=== PATIENT | male | born 1990 | race Caucasian/White ===

== ENCOUNTER 2017-03-20 22:46 | Emergency (ER) | payer BC, SELFPAY ==
[~2017-03-20] VITALS: Ht 193 cm; Wt 117.9 kg
[2017-03-20 22:48] VITALS: BP 151/89
[2017-03-21 04:01] LABS: ANION GAP 8 MEQ/L (8-16); BLOOD UREA NITROGEN 6 MG/DL (7-18); CALCIUM LEVEL 8.5 MG/DL (8.5-10.1); CARBON DIOXIDE LEVEL 28 MEQ/L (21-32); CHLORIDE LEVEL 103 MEQ/L (98-107); CREATININE FOR GFR 1.05 MG/DL (0.70-1.30); GLOMERULAR FILTRATION RATE > 60.0 (>60); GLUCOSE, FASTING 121 MG/DL (70-105); POTASSIUM SERUM 3.5 MEQ/L (3.5-5.1); SODIUM LEVEL 139 MEQ/L (136-145)
== END 2017-03-21 04:50 | disposition left against medical advice (07) ==
LOC: M ED 03-21 00:09
DX: J31.2 Chronic pharyngitis (principal); F17.200 Nicotine dependence, unspecified, uncomplicated; Z88.0 Allergy status to penicillin; Z53.21 Procedure and treatment not carried out due to patient leaving prior to being seen by health care provider

== ENCOUNTER 2017-07-25 20:27 | Emergency (ER) | payer BC ==
[~2017-07-25] VITALS: Ht 190.5 cm; Wt 113.6 kg
--- NOTE | 2017-07-25 22:20 | REPUSA ---
Clinical history: Pain. Findings: Real-time ultrasound imaging of the testicles and scrotum was performed. The right testicle measures 4.3 x 2.7 x 3.1 cm. The left testicle measures 4.4 x 2.2 x 3.0 cm. The testicles demonstrat e innumerable echogenic shadowing foci consistent with microlithiasis. This is not considered clinica lly significant. The palpable abnormality in the base of the right penis does not demonstrate any rebekah ss abnormality on ultrasound imaging. Normal color Doppler flow and arterial waveforms are seen bilat erally within the testicles. No fluid collections are seen. Impression: Unremarkable ultrasound examination of the testicles, other than benign bilateral microli thiasis. The palpable lesion at the base of the penis does not demonstrate any focal sonographic abno rmality.
[2017-07-25] MEDS ORDERED: IBUP-1022 PO (23:10)
[2017-07-25 23:17] VITALS: BP 142/88
== END 2017-07-25 23:27 | disposition home or self-care (01) ==
LOC: M ED 20:27
DX: N50.89 Other specified disorders of the male genital organs (principal); N50.811 Right testicular pain; F17.200 Nicotine dependence, unspecified, uncomplicated; Z88.0 Allergy status to penicillin; Z88.8 Allergy status to other drugs, medicaments and biological substances

== ENCOUNTER → 2019-03-29 | Outpatient (REF) | payer OTHER ==
[~2019-03-29] MED LIST: IBUP-1022 PO
== END ==
LOC: M SFHCLERA 17:00
PROVIDERS: ATTEND Nurse Practitioner Family
DX: J02.9 Acute pharyngitis, unspecified (principal)

== ENCOUNTER → 2019-11-19 | Outpatient (CLI) | payer OTHER ==
--- NOTE | 2019-11-19 14:30 | REP ---
Right ankle series: Four views. History: Right ankle pain. Remote prior history of fracture. No comparison imaging. Findings: There is a 1 cm accessory ossicle adjacent to the fibular tip. Ankle mortise is intact. No acute fractures seen. On lateral radiograph there is mild tibiotalar spurring. Bones, joints and soft tissues are otherwise unremarkable. Impression: Mild ankle joint spurring. Accessory ossicle adjacent to the fibular tip. No acute bony abnormality. Electronically Signed by Khai Jeff MD 11/19/2019 02:21 P
== END ==
LOC: M LRY 13:56
PROVIDERS: ATTEND Nurse Practitioner Family
DX: S99.911A Unspecified injury of right ankle, initial encounter (principal); X58.XXXA Exposure to other specified factors, initial encounter; Y92.89 Other specified places as the place of occurrence of the external cause

== ENCOUNTER 2020-02-10 11:03 | Emergency (ER) | payer OTHER ==
[~2020-02-10] VITALS: Ht 193 cm; Wt 124.0 kg
[2020-02-10 11:06] VITALS: BP 167/86
[2020-02-10] MEDS ORDERED: FLUORESCEIN OPHTH 1 MG STRIP OD ONE (11:15)
[2020-02-10] MEDS ORDERED: TETRACAINE 0.5% OPHTH SOLN 4ML OD ONE (11:15)
[2020-02-10] MEDS ORDERED: ERYT1OIN26 OP (11:41)
[2020-02-10] MEDS ORDERED: ERYTHROMYCIN OPHTH OINT OD ONE (11:45)
== END 2020-02-10 11:50 | disposition home or self-care (01) ==
LOC: M ED 11:03
DX: S05.01XA Injury of conjunctiva and corneal abrasion without foreign body, right eye, initial encounter (principal); W22.8XXA Striking against or struck by other objects, initial encounter; Y92.9 Unspecified place or not applicable; F17.210 Nicotine dependence, cigarettes, uncomplicated; Z88.0 Allergy status to penicillin; Z88.8 Allergy status to other drugs, medicaments and biological substances

== ENCOUNTER → 2020-10-16 | Outpatient (CLI) | payer SELFPAY ==
[~2020-10-16] MED LIST changes: +ERYT5OIN25 OP
== END ==
LOC: M LABSMTC 12:03
PROVIDERS: ATTEND Pediatrics
DX: Z20.828 Contact with and (suspected) exposure to other viral communicable diseases (principal)

== ENCOUNTER → 2020-11-09 | Outpatient (CLI) | payer OTHER | LOC: M LABSMTC 10:31 | PROVIDERS: ATTEND Anesthesiology | DX: Z01.812 Encounter for preprocedural laboratory examination (principal); Z20.822 Contact with and (suspected) exposure to COVID-19 ==

== ENCOUNTER 2020-11-14 09:26 | Day surgery (SDC) | payer OTHER ==
[~2020-11-14] VITALS: Ht 190.5 cm; Wt 132.4 kg
[~2020-11-14 09:26] MED LIST changes: +LIDOCAINE 2% 100MG/5ML SDV (FOR ANES.) As Ordered ONE; +NS 1,000 ML IV ONE; +propofoL 200 MG/20 ML VIAL As Ordered ONE
--- OUTSIDE RECORDS SUMMARY | 2020-11-14 09:33 | CCD | Continuity of Care Document ---
Author Author Sharan HUTSON [facility] Organization Unknown Address [address], [address] [place] [address] Phone [phone] Care Team Providers Care Ginseng Farmer Name Role Phone Jonatan Garcia M.D. [facility] [phone] Problems Description No Information Available Social History Type Date Description Comments Sex Unknown ETOH Use Denies alcohol use Tobacco Use Start: Unknown Smokes 1 Pack A Day X10 YRS Recreational Drug Use Denies Drug Use Allergies, Adverse Reactions, Alerts Active Allergies Reaction Severity Comments Date Penicillins RASH 05/30/2012 Ceftin RASH 05/30/2012 Medications Description No Active Medications Immunizations Description No Information Available Vital Signs Date Vital Result Comment 10/14/2020 12:58pm BP Systolic 150 mmHg BP Diastolic 80 mmHg Height 74 inches 6'2" Weight 295.00 lb BMI (Body Mass Index) 37.9 kg/m2 [place] Body Weight 190 lb Weight 133.812 kg BSA (Body Surface Area) 2.56 m2 05/30/2012 9:41am BP Systolic 135 mmHg BP Diastolic 75 mmHg Height 75 inches 6'3" Weight 280.00 lb BMI (Body Mass Index) 35.0 kg/m2 [place] Body Weight 196 lb Weight 127.008 kg Results Description No Information Available Procedures Description No Information Available Medical Devices Description No Information Available Encounters Description No Information Available Assessments Description No Information Available Plan of Treatment No Information Available Functional Status Description No Information Available Mental Status Description No Information Available Referrals Description No Information Available
--- OUTSIDE RECORDS SUMMARY | 2020-11-14 09:33 | CCD ---
Author Author [facility] Organization [facility] Address Unknown Phone Unavailable Care Team Providers Care Copy Reader Name Role Phone Jonatan Garcia Unavailable PROBLEMS No Information ALLERGIES Allergen (clinical drug ingredient) Drug/Non Drug Allergy do cumented on EMR Reaction Allergy Type Onset Date Status Ceftin rash Drug Allergy Active ENCOUNTERS from 1990 to 2020-10-16 Encounter Location Date Provider Diagnosis [facility] [address] [place] [address] Oct, Jonatan Garcia IMMUNIZATIONS No Information SOCIAL HISTORY Tobacco Use: Social History Observation Description Date Details (start date - stop date) Current Smoker Sex Assigned At : Social History Observation Description Sex Assigned At Unknown Tobacco Use: Question Answer Notes Are you a: current smoker How many cigarettes a day do you smoke? 6-10 REASON FOR REFERRAL No Information VITAL SIGNS No information MEDICATIONS No Information PROCEDURES No Information RESULTS No Results REASON FOR VISIT chest pain, shortness of breath MEDICAL (GENERAL) HISTORY Type Description Date Medical History vertigo Medical History Pleurisy Medical History Fx left elbow no surgery 2012 Surgical History tonsilectomy Goals Section No Information Health Concerns No Information MEDICAL EQUIPMENT No Information MENTAL STATUS No Information FUNCTIONAL STATUS No Information ASSESSMENTS No Information PLAN OF TREATMENT No Information Insurance Providers Payer Name Payer Address Payer Phone Insured Name Patient Relati onship to Insured Coverage Start Date Coverage End Date [facility] [address] [address] [facility] [id number] CRISTIN LOPEZ Lizzy self
--- OUTSIDE RECORDS SUMMARY | 2020-11-14 09:34 | CCD ---
Author Author [facility] Organization [facility] Address Unknown Phone Unavailable Care Team Providers Care Buzzsaw Operator Helper Name Role Phone Servando LOPEZ DPM Unavailable Unavailable Servando LOPEZ DPM Unavailable Unavailable Servando LOPEZ DPM Unavailable Unavailable Servando LOPEZ DPM Unavailable Unavailable Servando LOPEZ DPM Unavailable Unavailable Servando LOPEZ DPM Unavailable Unavailable Servando LOPEZ DPM Unavailable Unavailable Servando LOPEZ DPM Unavailable Unavailable Servando LOPEZ DPM Unavailable Unavailable Servando LOPEZ DPM Unavailable Unavailable Servando LOPEZ DPM Unavailable Unavailable Servando LOPEZ DPM Unavailable Unavailable Servando LOPEZ DPM Unavailable Unavailable Servando LOPEZ DPM Unavailable Unavailable MAJAK, R FERNANDO DPM Unavailable Unavailable MAJAK, R FERNANDO DPM Unavailable Unavailable MAJAK, R FERNANDO DPM Unavailable Unavailable MAJAK, R FERNANDO DPM Unavailable Unavailable MAJAK, R FERNANDO DPM Unavailable Unavailable MAJAK, R FERNANDO DPM Unavailable Unavailable MAJAK, R FERNANDO DPM Unavailable Unavailable MAJAK, R FERNANDO DPM Unavailable Unavailable MAJAK, R FERNANDO DPM Unavailable Unavailable MAJAK, R FERNANDO DPM Unavailable Unavailable MAJAK, R FERNANDO DPM Unavailable Unavailable MAJAK, R FERNANDO DPM Unavailable Unavailable MAJAK, R FERNANDO DPM Unavailable Unavailable MAJAK, R FERNANDO DPM Unavailable Unavailable MAJAK, R FERNANDO DPM Unavailable Unavailable MAJAK, R FERNANDO DPM Unavailable Unavailable CLAUDIA, VIVEK PA Unavailable Unavailable CLAUDIA, VIVEK PA Unavailable Unavailable CLAUDIA, VIVEK PA Unavailable Unavailable CLAUDIA, VIVEK PA Unavailable Unavailable CLAUDIA, VIVEK PA Unavailable Unavailable CLAUDIA, VIVEK PA Unavailable Unavailable CLAUDIA, VIVEK PA Unavailable Unavailable CLAUDIA, VIVEK PA Unavailable Unavailable CLAUDIA, VIVEK PA Unavailable Unavailable CLAUDIA, VIVEK PA Unavailable Unavailable CLAUDIA, VIVEK PA Unavailable Unavailable CLAUDIA, VIVEK PA Unavailable Unavailable CLAUDIA, VIVEK PA Unavailable Unavailable CLAUDIA, VIVEK PA Unavailable Unavailable CLAUDIA, VIVEK PA Unavailable Unavailable CLAUDIA, VIVEK PA Unavailable Unavailable CLAUDIA, VIVEK PA Unavailable Unavailable CLAUDIA, VIVEK PA Unavailable Unavailable CLAUDIA, VIVEK PA Unavailable Unavailable CLAUDIA, VIVEK PA Unavailable Unavailable CLAUDIA, VIVEK PA Unavailable Unavailable CLAUDIA, VIVEK PA Unavailable Unavailable CLAUDIA, VIVEK PA Unavailable Unavailable CLAUDIA, VIVEK PA Unavailable Unavailable CLAUDIA, VIVEK PA Unavailable Unavailable CLAUDIA, VIVEK PA Unavailable Unavailable CLAUDIA, VIVEK PA Unavailable Unavailable CLAUDIA, VIVEK PA Unavailable Unavailable CLAUDIA, VIVEK PA Unavailable Unavailable CLAUDIA, VIVEK PA Unavailable Unavailable CLAUDIA, VIVEK PA Unavailable Unavailable CLAUDIA, VIVEK PA Unavailable Unavailable CLAUDIA, VIVEK PA Unavailable Unavailable CLAUDIA, VIVEK PA Unavailable Unavailable CLAUDIA, VIVEK PA Unavailable Unavailable CLAUDIA, VIVEK PA Unavailable Unavailable CLAUDIA, VIVEK PA Unavailable Unavailable CLAUDIA, VIVEK PA Unavailable Unavailable LAUREN, A. SHAHBAZ DO Unavailable [phone] LAUREN, A. SHAHBAZ DO Unavailable [phone] LAUREN, A. SHAHBAZ DO Unavailable [phone] LAUREN, A. SHAHBAZ DO Unavailable [phone] LAUREN, A. SHAHBAZ DO Unavailable [phone] LAUREN, A. SHAHBAZ DO Unavailable [phone] LAUREN, A. SHAHBAZ DO Unavailable [phone] LAUREN, A. SHAHBAZ DO Unavailable [phone] LAUREN, A. SHAHBAZ DO Unavailable [phone] LAUREN, A. SHAHBAZ DO Unavailable [phone] LAUREN, A. SHAHBAZ DO Unavailable [phone] LAUREN, A. SHAHBAZ DO Unavailable [phone] LAUREN, A. SHAHBAZ DO Unavailable [phone] LAUREN, A. SHAHBAZ DO Unavailable [phone] LAUREN, A. SHAHBAZ DO Unavailable [phone] LAUREN, A. SHAHBAZ DO Unavailable [phone] LAUREN, A. SHAHBAZ DO Unavailable [phone] LAUREN, A. SHAHBAZ DO Unavailable [phone] LAUREN, A. SHAHBAZ DO Unavailable [phone] LAUREN, A. SHAHBAZ DO Unavailable [phone] LAUREN, A. SHAHBAZ DO Unavailable [phone] Re-disclosure Warning The records that you are about to access may contain information from federally-assisted alcohol or drug abuse programs. If such information is present, then the following federally mandated warning applies: This information has been disclosed to you from records protected by federal confidentiality rules (42 CFR part 2). The federal rules prohibit you from making any further disclosure of this information unless further disclosure is expressly permitted by the written consent of the person to whom it pertains or as otherwise permitted by 42 CFR part 2. A general authorization for the release of medical or other information is NOT sufficient for this purpose. The Federal rules restrict any use of the information to criminally investigate or prosecute any alcohol or drug abuse patient.The records that you are about to access may contain highly sensitive health information, the redisclosure of which is protected by Article 27-F of the [facility] Public Health law. If you continue you may have access to information: Regarding HIV / AIDS; Provided by facilities licensed or operated by the [facility] Office of Mental Health; or Provided by the [facility] Office for People With Developmental Disabilities. If such information is present, then the following [facility] mandated warning applies: This information has been disclosed to you from confidential records which are protected by state law. State law prohibits you from making any further disclosure of this information without the specific written consent of the person to whom it pertains, or as otherwise permitted by law. Any unauthorized further disclosure in violation of state law may result in a fine or halfway sentence or both. A general authorization for the release of medical or other information is NOT sufficient authorization for further disc losure. Allergies and Adverse Reactions Type Description Substance Reaction Status Data Source(s ) Drug allergy Ceftin Ceftin Active SHAYY (Chase Roberts MD [facility]) Drug allergy Penicillins Penicillins Active SHAYY ( Goldy Roberts MD [facility]) Drug allergy Ceftin Drug allergy rash Active eCW1 ([facility]) Encounters Encounter Providers Location Date Indications Data Source(s ) Unknown [address] [address] 10/14/2020 12:00:00 AM EST eCW1 ([facility]) Outpatient<td ID="encounterTypeDescripti onID0">NEW PATIENT</td><td>Shahbaz Ocampo DO</td><td>Goldy Duggan MD [facility]</td><td>07/19/2020</td><td>8:11AM</td><td>9:16AM</td><td><content ID="encounterDiagnosisID0-0">Vitreous Disorders Degeneration</content>, <content ID="encounterDiagnosisID0-1">Corneal Scar</content>, <content ID="encounterDiagnosisID0-2">Astigmatism - Irregular</content></td> Attender: SHAHBAZ Oneil MD [facility] 07/19/2020 08:11:00 AM EDT - 07/19/2020 09:16:00 AM EDT Astigmatism - IrregularCorneal ScarVitre ous Disorders Degeneration SHAYY (Goldy Roberts MD [facility]) Astigmatism - Irregular Corneal Scar Vitreous Disorders Degeneration Outpatient Attender: FERNANDO LOPEZ [facility] Office 05/02 08:15:00 AM EDT MEDENT ([facility] Outpatient Attender: FERNANDO LOPEZ [facility] Office 05/2020 08:30:00 AM EDT MEDENT ([facility] Outpatient 12/11/2019 02:19:00 PM EST [facility] [address] [address] 11/19/2019 12:00:00 AM EST eCW1 ([facility]) Outpatient Attender: VIVEK fine 11/13/2019 09:15:00 AM EST MEDENT ([facility]) Medications Medication Brand Name Start Date Product Form Dose Route Admi nistrative Instructions Pharmacy Instructions Status Indications Reaction Description Data Source(s) 17.5-3.13-1.6 gram 11/07/2020 12:00:00 AM EST recon soln 354 TAKE DIRECTED BY PHYSICIAN TAKE DIRECTED BY PHYSICIAN SOLD: 11/09/2020 [facility] 5 mg/gram (0.5 %) 02/10/2020 12:00:00 AM EDT ointment 3 APPLY 1 CENTIMETER RIBBON INTO THE LOWER CONJUNCTIVAL SAC OF THE AFFECTED EYE(S) FOUR TIMES A DAY APPLY 1 CENTIMETER RIBBON INTO THE LOWER CONJUNCTIVAL SAC OF THE AFFECTED EYE(S) FOUR TIMES A DAY SOLD: 02/10/2020 [facility] Oseltamivir 75 MG Oral Capsule Oseltamivir Phosphate 11/13/2019 12:00:00 AM EST ORAL active MEDENT ( [facility]) 75 mg 11/13/2019 12:00:00 AM EST capsule 10 TAKE ONE CAPSULE BY MOUTH TWICE A DAY FOR 5 DAYS TAKE ONE CAPSULE BY MOUTH TWICE A DAY FOR 5 DAYS SOLD: 11/13/2019 [facility] Insurance Providers Payer name Policy type / Coverage type Policy ID Covered constitution party ID Covered constitution party's relationship to be Policy Be Plan Information UMR [facility] [id number] SP [id number] SELF PAY ONLY [employer] [place] Other 0 Self 0 UMR [facility] [id number] SP [id number] UMR O [id number] S [id number] SELF PAY ONLY - SP1 [id number] SP [id number] [place] 302/307 [id number] MO2 [id number] [place] BCBS B [id number] C VYS [place] [place] 306/806 [id number] MO2 [id number] [place] PPO 302/307 [id number] MO2 [id number] SELF PAY ONLY [id number] SP [id number] [employer] [place] 306/806 [id number] MO2 [id number] [employer] BCBS P [id number] C VYS [id number] Problems, Conditions, and Diagnoses Code Display Name Description Problem Type Effective Dates Data Source(s) 379.21 Vitreous Disorders Degeneration Vitreous Disorders Deg eneration Problem 07/19/2020 12:00:00 AM EDT SHAYY (Goldy Roberts MD [facility]) 371.02 Corneal Scar Corneal Scar Problem 07/19/2020 12:00:00 A M EDT SHAYY (Goldy Roberts MD [facility]) 367.22 Astigmatism - Irregular Astigmatism - Irregular Proble m 07/19/2020 12:00:00 AM EDT SHAYY (Goldy Roberts MD [facility]) Corns and callosities Corns and callosities Problem 05/21/2020 12:00:00 AM EDT MEDENT ([facility] [id number] Hammer toe Hammer toe Problem 05/21/2020 12:00:00 AM ED T MEDENT ([facility] [id number] Osteochondropathy Osteochondropathy Problem 05/21/2020 12:00:00 AM EDT [facility] ([facility] Surgeries/Procedures Procedure Description Date Indications Data Source(s) Surgical / procedural history Tonsillec justo 2010, Placement of Amniotic Membrane without sutures 02/14/2020, 02/16/2020 and 02/19/2020 by [facility] Surgical / procedural history Tonsillectomy 2009, Placement of Amniotic Membrane without sutures 02/14/2020, 02/16/2020 and 02/19/2020 by [facility] 07/19/2020 12:00:00 AM EDT SHAYY (Goldy Roberts MD [facility]) Medical Eye Exam Medical Eye Exam 07/19/2020 12:00:00 AM EDT SHAYY (Goldy Roberts MD [facility]) Results ID Date Data Source [id number] 11/09/2020 10:30:00 AM EST [facility] Name Value Range Interpretation Code Description Data Zuleika rce(s) Supporting Document(s) SARS coronavirus 2 RNA Not Detected [facility] This lab was ordered by [facility] and reported by [facility]. ID Date Data Source [id number] 10/16/2020 12:00:00 AM EST [facility] Name Value Range Interpretation Code Description Data Zuleika rce(s) Supporting Document(s) SARS-CoV-2 (COVID-19) RNA [Presence] in Respiratory specimen by JT with probe detection [facility] This lab was ordered by [facility] and reported by [employer] ID Date Data Source [id number] 09/18/2020 12:00:00 AM EST [facility] Name Value Range Interpretation Code Description Data Zuleika rce(s) Supporting Document(s) SARS-CoV2 Rapid Antigen [facility] and reported by [facility]. Procedure Social History Code Duration Value Status Description Data Source(s ) Smoking 07/19/2020 09:20:46 AM EDT Smokes tobacco daily (findi ng) completed Smokes tobacco daily (finding) SHAYY (Goldy Roberts MD [facility]) Smoking 11/19/2019 12:00:00 AM EST Current Smoker completed Curre nt Smoker eCW1 ([facility]) Vital Signs ID Date Data Source UNK Name Value Range Interpretation Code Description Data Source(s) Body surface area Derived from formula 2.56 m2 2.56 m2 [facility] Body weight 133.812 kg 133.812 kg [facility] ([facility]) [place] body weight 190 [lb_av] 190 [lb_av] MEDEN T ([facility]) Body mass index (BMI) [Ratio] 37.9 kg/m2 37.9 k g/m2 MEDENT ([facility]) Body weight 295.00 [lb_av] 295.00 [lb_av] MEDEN T ([facility]) Body height 74 [in_i] 74 [in_i] [facility] ([facility]) 6'2" Diastolic blood pressure 80 mm[Hg] 80 mm[Hg] [facility] ([facility]) Systolic blood pressure 150 mm[Hg] 150 mm[Hg] [facility] Body mass index (BMI) [Ratio] 32.3 kg/m2 32.3 k g/m2 MEDENT ([facility] Heart rate 74 /min 74 /min [facility] ([facility] Diastolic blood pressure 90 mm[Hg] 90 mm[Hg] [facility] ([facility] Systolic blood pressure 128 mm[Hg] 128 mm[Hg] M EDENT ([facility] Body weight 265.00 [lb_av] 265.00 [lb_av] MEDEN T ([facility] Body height 76 [in_i] 76 [in_i] [facility] ([facility] 6'4" Diastolic blood pressure 80 mm[Hg] 80 mm[Hg] eCW1 ([facility]) Systolic blood pressure 136 mm[Hg] 136 mm[Hg] e CW1 ([facility]) Body temperature 98.4 [degF] 98.4 [degF] eCW1 ( [facility]) Respiratory rate 18 /min 18 /min eCW1 ([facility]) Heart rate 92 /min 92 /min eCW1 ([facility]) Body mass index (BMI) [Ratio] 36.07 kg/m2 36.07 kg/m2 eCW1 ([facility]) Body height [in_us] eCW1 ([facility]) Body weight Measured 281 [lb_av] 281 [lb_av] eC W1 ([facility]) Body mass index (BMI) [Ratio] 33.5 kg/m2 33.5 k g/m2 MEDENT ([facility], [facility]) Body height 76 [in_i] 76 [in_i] MEDENT ([facility], [facility]) 6'4" Body weight 275.00 [lb_av] 275.00 [lb_av] MEDEN T ([facility], [facility]) Body temperature 97.9 [degF] 97.9 [degF] MEDENT ([facility], [facility]) Oxygen saturation in Arterial blood by Pulse oximetry 98 % 98 % MEDENT ([facility], [facility]) Heart rate 70 /min 70 /min MEDENT ([facility], [facility]) Diastolic blood pressure 77 mm[Hg] 77 mm[Hg] MEDENT ([facility], [facility]) Systolic blood pressure 127 mm[Hg] 127 mm[Hg] M EDENT ([facility], [facility])
[2020-11-14] MEDS ORDERED: fentaNYL 100 MCG/2 ML INJECTION (J3010) As Ordered ONE (10:57)
--- NOTE | 2020-11-14 11:33 | ROOR ---
Patient Name: Sharan Streeter Procedure Date: 11/14/2020 10:48 AM Date of : 1990 Age: 30 Room: [facility] Gender: Male Note Status: Finalized Procedure: Upper GI endoscopy Indications: Epigastric abdominal pain, Heartburn Providers: Sukh Sotomayor MD Referring MD: Jonatan Garcia MD Requesting Provider: Medicines: Monitored Anesthesia Care Complications: No immediate complications. Procedure: Pre-Anesthesia Assessment: - Prior to the procedure, a History and Physical was performed, and patient medications and allergies were reviewed. The patient is competent. The risks and benefits of the procedure and the sedation options and risks were discussed with the patient. All questions were answered and informed consent was obtained. Patient identification and proposed procedure were verified by the physician, the nurse and the anesthesiologist in the procedure room. Mental Status Examination: alert and oriented. Airway Examination: normal oropharyngeal airway and neck mobility. Prophylactic Antibiotics: The patient does not require prophylactic antibiotics. Prior Anticoagulants: The patient has taken no previous anticoagulant or antiplatelet agents. ASA Grade Assessment: II - A patient with mild systemic disease. After reviewing the risks and benefits, the patient was deemed in satisfactory condition to undergo the procedure. The anesthesia plan was to use monitored anesthesia care (MAC). Immediately prior to administration of medications, the patient was re-assessed for adequacy to receive sedatives. The heart rate, respiratory rate, oxygen saturations, blood pressure, adequacy of pulmonary ventilation, and response to care were monitored throughout the procedure. The physical status of the patient was re-assessed after the procedure. The Endoscope was introduced through the mouth, and advanced to the second part of duodenum. The upper GI endoscopy was accomplished without difficulty. The patient tolerated the procedure well. Findings: The examined esophagus was normal. The Z-line was regular and was found 42 cm from the incisors. The entire examined stomach was normal. Biopsies were taken with a cold forceps for Helicobacter pylori testing. Estimated blood loss was minimal. The examined duodenum was normal. Impression: - Normal esophagus. - Z-line regular, 42 cm from the incisors. - Normal stomach. Biopsied. - Normal examined duodenum. Recommendation: - Discharge patient to home. - Resume previous diet. - Continue present medications. - Await pathology results. - Telephone endoscopist for pathology results in 1 week. Procedure Code(s): --- Professional --- 86537, Esophagogastroduodenoscopy, flexible, transoral; with biopsy, single or multiple Diagnosis Code(s): --- Professional --- R10.13, Epigastric pain R12, Heartburn CPT copyright 2019 [employer] [employer]. All rights reserved. The codes documented in this report are preliminary and upon inpatient coder review may be revised to meet current compliance requirements. Sukh Sotomayor MD Sukh Sotomayor MD 11/14/2020 11:32:49 AM Electronically signed by Sukh Sotomayor MD Number of Addenda: 0 Note Initiated On: 11/14/2020 10:48 AM Estimated Blood Loss: Estimated blood loss was minimal.
--- NOTE | 2020-11-14 11:38 | ROOR ---
Patient Name: Sharan Streeter Procedure Date: 11/14/2020 10:49 AM Date of : 1990 Age: 30 Room: [facility] Gender: Male Note Status: Finalized Procedure: Colonoscopy Indications: Rectal bleeding Providers: Sukh Sotomayor MD Referring MD: Jonatan Garcia MD Requesting Provider: Medicines: Monitored Anesthesia Care Complications: No immediate complications. Procedure: Pre-Anesthesia Assessment: - Prior to the procedure, a History and Physical was performed, and patient medications and allergies were reviewed. The patient is competent. The risks and benefits of the procedure and the sedation options and risks were discussed with the patient. All questions were answered and informed consent was obtained. Patient identification and proposed procedure were verified by the physician, the nurse and the anesthesiologist in the procedure room. Mental Status Examination: alert and oriented. Airway Examination: normal oropharyngeal airway and neck mobility. Prophylactic Antibiotics: The patient does not require prophylactic antibiotics. Prior Anticoagulants: The patient has taken no previous anticoagulant or antiplatelet agents. ASA Grade Assessment: II - A patient with mild systemic disease. After reviewing the risks and benefits, the patient was deemed in satisfactory condition to undergo the procedure. The anesthesia plan was to use monitored anesthesia care (MAC). Immediately prior to administration of medications, the patient was re-assessed for adequacy to receive sedatives. The heart rate, respiratory rate, oxygen saturations, blood pressure, adequacy of pulmonary ventilation, and response to care were monitored throughout the procedure. The physical status of the patient was re-assessed after the procedure. The Colonoscope was introduced through the anus and advanced to the cecum, identified by the ileocecal valve. The patient tolerated the procedure well. The quality of the bowel preparation was excellent. The colonoscopy was performed without difficulty. Findings: Hemorrhoids were found on perianal exam. Multiple small-mouthed diverticula were found in the sigmoid colon, descending colon and distal descending colon. Non-bleeding internal hemorrhoids were found during endoscopy. The hemorrhoids were small. The exam was otherwise without abnormality. Impression: - Hemorrhoids found on perianal exam. - Diverticulosis in the sigmoid colon, in the descending colon and in the distal descending colon. - Non-bleeding internal hemorrhoids. - The examination was otherwise normal. - No specimens collected. Recommendation: - Discharge patient to home. - Resume previous diet. - Continue present medications. - Return to primary care physician PRN. Procedure Code(s): --- Professional --- 87352, Colonoscopy, flexible; diagnostic, including collection of specimen(s) by brushing or washing, when performed (separate procedure) Diagnosis Code(s): --- Professional --- K64.8, Other hemorrhoids K62.5, Hemorrhage of anus and rectum K57.30, Diverticulosis of large intestine without perforation or abscess without bleeding CPT copyright 2019 [employer]. All rights reserved. The codes documented in this report are preliminary and upon him coder review may be revised to meet current compliance requirements. Sukh Sotomayor MD Sukh Sotomayor MD 11/14/2020 11:38:13 AM Electronically signed by Sukh Sotomayor MD Number of Addenda: 0 Note Initiated On: 11/14/2020 10:49 AM Estimated Blood Loss: Estimated blood loss: none.
[2020-11-14 12:06] VITALS: BP 119/77
== END 2020-11-14 12:10 | disposition home or self-care (01) ==
LOC: M OPP 09:26
PROVIDERS: ATTEND Surgery
DX: K62.5 Hemorrhage of anus and rectum (principal); R10.13 Epigastric pain; D13.1 Benign neoplasm of stomach; K64.8 Other hemorrhoids; K57.30 Diverticulosis of large intestine without perforation or abscess without bleeding; F17.290 Nicotine dependence, other tobacco product, uncomplicated; Z88.0 Allergy status to penicillin; Z88.1 Allergy status to other antibiotic agents
CPT/HCPCS: 43239; 45378; 88305; J3010

== ENCOUNTER → 2021-09-11 | Outpatient (REF) | payer OTHER ==
[~2021-09-11] MED LIST changes: -LIDOCAINE 2% 100MG/5ML SDV (FOR ANES.) As Ordered ONE; -NS 1,000 ML IV ONE; -propofoL 200 MG/20 ML VIAL As Ordered ONE
[2021-09-11 11:31] LABS: HEMATOCRIT 48.5 % (42.0-52.0); HEMOGLOBIN 16.4 g/dl (13.5-17.5); MEAN CORPUSCULAR HEMOGLOBIN 30.4 pg (27.0-33.0); MEAN CORPUSCULAR HGB CONC 33.8 g/dl (32.0-36.5); MEAN CORPUSCULAR VOLUME 89.8 fl (80.0-96.0); PLATELET COUNT, AUTOMATED 242 10^3/uL (150-450); WHITE BLOOD COUNT 6.4 10^3/uL (4.0-10.0)
[2021-09-11 12:18] LABS: ALT/SGPT 48 U/L (12-78); BILIRUBIN,TOTAL 0.4 MG/DL (0.2-1.0); BLOOD UREA NITROGEN 17 MG/DL (7-18); CALCIUM LEVEL 9.6 MG/DL (8.5-10.1); CARBON DIOXIDE LEVEL 28 MEQ/L (21-32); CHLORIDE LEVEL 103 MEQ/L (98-107); CHOLESTEROL LEVEL 318 MG/DL (<200); CHOLESTEROL RISK RATIO 6.913 (<5); CREATININE FOR GFR 1.12 MG/DL (0.70-1.30); GLOMERULAR FILTRATION RATE > 60.0 (>60); GLUCOSE, FASTING 88 MG/DL (70-100); HDL CHOLESTEROL 46 MG/DL (>40); LDL CHOLESTEROL 237 MG/DL (<100); NON-HDL-C 272 MG/DL; SODIUM LEVEL 138 MEQ/L (136-145); TOTAL PROTEIN 7.2 GM/DL (6.4-8.2); TRIGLYCERIDES LEVEL 176 MG/DL (<150)
== END ==
LOC: M SFHCCLAY 09:30
PROVIDERS: ATTEND Family Medicine
DX: Z00.00 Encounter for general adult medical examination without abnormal findings (principal)

== ENCOUNTER 2022-07-08 15:43 | Emergency (ER) | payer OTHER, SELFPAY ==
[~2022-07-08] VITALS: Ht 190.5 cm; Wt 124.1 kg
[2022-07-08] MEDS ORDERED: IBUP-1022 PO (15:50)
[2022-07-08] MEDS ORDERED: [UNRECOGNIZED DRUG - MIXTURE] TOP (15:51)
[2022-07-08] MEDS ORDERED: MORPHINE 4 MG/ML 1ML VIAL/SYRINGE IV ONE ×2 (17:10→18:05)
[2022-07-08 17:42] LABS: BASO % 0.5 % (0.0-1.0); EOS # 0.1 10^3/uL (0.0-0.5); EOS % 1.1 % (0.0-3.0); HEMATOCRIT 46.4 % (42.0-52.0); HEMOGLOBIN 15.7 g/dl (13.5-17.5); LYMPH % 25.9 % (24.0-44.0); MEAN CORPUSCULAR HEMOGLOBIN 30.3 pg (27.0-33.0); MEAN CORPUSCULAR HGB CONC 33.8 g/dl (32.0-36.5); MEAN CORPUSCULAR VOLUME 89.4 fl (80.0-96.0); MONO # 0.6 10^3/uL (0.0-0.8); NEUTROPHILS # 4.9 10^3/uL (1.5-8.5); NEUTROPHILS % 64.4 % (36.0-66.0); PLATELET COUNT, AUTOMATED 231 10^3/uL (150-450); RED BLOOD COUNT 5.19 10^6/uL (4.30-6.10); WHITE BLOOD COUNT 7.5 10^3/uL (4.0-10.0)
[2022-07-08] MEDS ORDERED: ISOVUE-370 76% 100ML VIAL As Ordered ONE (17:46)
[2022-07-08 18:10] LABS: ERYTHROCYTE SEDIMENTATION RATE 3 mm/hr (0-15)
[2022-07-08 19:11] LABS: ALBUMIN 4.3 GM/DL (3.2-5.2); ALT/SGPT 43 U/L (12-78); BILIRUBIN,DIRECT 0.1 MG/DL (0.0-0.2); BILIRUBIN,TOTAL 0.4 MG/DL (0.2-1.0); C REACTIVE PROTEIN QUANTITATIV < 0.30 MG/DL (0.00-0.30); LIPASE 107 U/L (73-393); TOTAL PROTEIN 7.3 GM/DL (6.4-8.2)
[2022-07-08] MEDS ORDERED: PROCTOFOAM-HC 1% FOAM 10 GM CAN PR STA (20:30)
[2022-07-08] MEDS ORDERED: DOCUSATE SODIUM 100MG CAPSULE PO STA (20:30)
[2022-07-08 21:30] VITALS: BP 132/76
[2022-07-08] MEDS ORDERED: PROC1AER16 PR (21:45)
[2022-07-08] MEDS ORDERED: COLA100C5 PO (21:45)
== END 2022-07-08 21:59 | disposition home or self-care (01) ==
LOC: M ED 15:43
DX: K51.20 Ulcerative (chronic) proctitis without complications (principal); I44.4 Left anterior fascicular block; I45.10 Unspecified right bundle-branch block; Z88.0 Allergy status to penicillin; Z88.1 Allergy status to other antibiotic agents; Z79.899 Other long term (current) drug therapy
CPT/HCPCS: 74177; 80047; 80076; 83690; 85025; 85652; 86140; 93005; 96374; 96376; 99284; J2270; Q9967

== ENCOUNTER → 2022-10-19 | Outpatient (CLI) | payer OTHER ==
[~2022-10-19] MED LIST changes: +COLA100C5 PO; +PROC1AER16 PR; +[UNRECOGNIZED DRUG - MIXTURE] TOP
== END ==
LOC: M LABSMTC 09:07
PROVIDERS: ATTEND Anesthesiology
DX: Z01.812 Encounter for preprocedural laboratory examination (principal); Z11.52 Encounter for screening for COVID-19

== ENCOUNTER → 2022-11-08 | Outpatient (CLI) | payer OTHER | LOC: M LABSMTC 11:56 | PROVIDERS: ATTEND Surgery | DX: Z01.818 Encounter for other preprocedural examination (principal); Z20.822 Contact with and (suspected) exposure to COVID-19 ==

== ENCOUNTER 2023-01-12 18:50 | Inpatient (IN) | payer OTHER ==
[~2023-01-12] VITALS: Ht 190.5 cm; Wt 122.7 kg
[2023-01-12] MEDS ORDERED: HALOPERIDOL 5MG/ML 1ML VIAL IM ONE (20:35)
[2023-01-12] MEDS ORDERED: MIDAZOLAM INJ 2MG/2ML VIAL IM ONE (20:35)
[2023-01-12] MEDS ORDERED: diphenhydrAMINE 50MG/ML VIAL IM ONE (20:35)
[2023-01-12] MEDS ORDERED: IBUP-1720 PO (20:56)
[2023-01-12 21:00] LABS: HEMATOCRIT 48.9 % (42.0-52.0); HEMOGLOBIN 16.7 g/dl (13.5-17.5); MEAN CORPUSCULAR HGB CONC 34.2 g/dl (32.0-36.5); MEAN CORPUSCULAR VOLUME 87.8 fl (80.0-96.0); PLATELET COUNT, AUTOMATED 290 10^3/uL (150-450); RED BLOOD COUNT 5.57 10^6/uL (4.30-6.10); WHITE BLOOD COUNT 7.8 10^3/uL (4.0-10.0)
[2023-01-12] MEDS ORDERED: HOME MED LIST COMPLETE! XX SCH ×2 (21:00)
[2023-01-12] MEDS ORDERED: OLANZapine ORAL DISINTEGRATING TAB 5MG PO ONE (21:00)
[2023-01-12 21:28] LABS: ETHYL ALCOHOL (ETHANOL) 0.004 % (0.000-0.010)
[2023-01-12 21:29] LABS: ACETAMINOPHEN LEVEL < 2.0 UG/ML (10.0-20.0)
[2023-01-12 21:30] LABS: ALBUMIN 4.7 G/DL (3.2-5.2); ALKALINE PHOSPHATASE 85 U/L (46-116); ALT/SGPT 47 U/L (7.0-40); AST/SGOT 30 U/L (<34); BILIRUBIN,DIRECT 0.1 MG/DL (<0.4); BILIRUBIN,TOTAL 0.4 MG/DL (0.3-1.2); BLOOD UREA NITROGEN 13 MG/DL (9-23); CALCIUM LEVEL 9.6 MG/DL (8.5-10.1); CARBON DIOXIDE LEVEL 22 MMOL/L (20-31); CHLORIDE LEVEL 105 MMOL/L (98-107); CREATININE FOR GFR 0.92 MG/DL (0.70-1.30); GLOMERULAR FILTRATION RATE > 60.0 (>60); GLUCOSE, FASTING 110 MG/DL (60-100); SALICYLATE LEVEL < 3.0 MG/DL (<30); SODIUM LEVEL 138 MMOL/L (136-145); TOTAL PROTEIN 7.7 G/DL (5.7-8.2)
[2023-01-12 21:31] LABS: THYROID STIMULATING HORMONE 0.874 uIU/ML (0.55-4.78)
[2023-01-12 21:33] LABS: RSV AMPLIFICATION NEGATIVE (NEGATIVE)
[2023-01-13] MEDS: NICOTINE 21MG/24HR 1 EA TRANSDERMAL TD SCH (09:00)
[2023-01-13 14:16] LABS: BARBITURATES URINE NEGATIVE (NEGATIVE); BENZODIAZEPINES URINE NEGATIVE (NEGATIVE); COCAINE METABOLITE URINE NEGATIVE (NEGATIVE); METHADONE URINE NEGATIVE (NEGATIVE); OPIATES URINE NEGATIVE (NEGATIVE)
[2023-01-13 14:17] LABS: CANNABINOIDS URINE NEGATIVE (NEGATIVE); PHENCYCLIDINE URINE NEGATIVE (NEGATIVE)
[2023-01-13 14:20] LABS: AMPHETAMINES LEVEL URINE POSITIVE (NEGATIVE)
[2023-01-13] MEDS ORDERED: traZODone 50 MG TAB PO PRN (15:20)
[2023-01-13] MEDS ORDERED: diphenhydrAMINE 25MG CAP PO PRN (15:20)
[2023-01-13] MEDS ORDERED: OLANZapine ORAL DISINTEGRATING TAB 5MG PO PRN (15:20)
[2023-01-13 16:53] VITALS: BP 121/69
[2023-01-14 06:08] VITALS: BP 132/55
[2023-01-14] MEDS: NICOTINE 21MG/24HR 1 EA TRANSDERMAL TD SCH (09:04)
[2023-01-14] MEDS ORDERED: POLYVINYL ALCOHOL OPHTH SOLN 15ML (LIQUITEARS) OU PRN (16:30)
[2023-01-14 19:06] VITALS: BP 162/88
[2023-01-14 20:10] VITALS: BP 130/84
[2023-01-14] MEDS: OLANZapine 5 MG TAB PO SCH (21:43)
[2023-01-15 06:10] VITALS: BP 120/75
[2023-01-15] MEDS: NICOTINE 21MG/24HR 1 EA TRANSDERMAL TD SCH (09:00)
[2023-01-15 18:27] VITALS: BP 147/77
[2023-01-15] MEDS: OLANZapine 5 MG TAB PO SCH (21:22)
[2023-01-16 06:44] VITALS: BP 131/70
[2023-01-16] MEDS: NICOTINE 21MG/24HR 1 EA TRANSDERMAL TD SCH (08:57)
[2023-01-16 16:36] VITALS: BP 130/68
[2023-01-16] MEDS: OLANZapine 5 MG TAB PO SCH (21:01)
[2023-01-17 06:31] VITALS: BP 119/65
[2023-01-17] MEDS: NICOTINE 21MG/24HR 1 EA TRANSDERMAL TD SCH (09:00)
[2023-01-17 16:39] VITALS: BP 134/72
[2023-01-17] MEDS: OLANZapine 5 MG TAB PO SCH (20:14)
[2023-01-18 06:17] VITALS: BP 139/70
[2023-01-18] MEDS: NICOTINE 21MG/24HR 1 EA TRANSDERMAL TD SCH (09:00)
[2023-01-18] MEDS ORDERED: BENA25CA4 PO (09:21)
[2023-01-18] MEDS ORDERED: NICO21PAT TD (09:21)
[2023-01-18] MEDS ORDERED: OLAN1TAB16 PO (09:21)
== END 2023-01-18 10:43 | disposition home or self-care (01) | DRG 754 ==
LOC: M ED 18:50 → EEVIPCON 18:50 → M ED INP 01-13 15:19 → EEVIPCON 01-13 15:19 → M PSY 01-13 16:41
PROVIDERS: ADMIT Psychiatry & Neurology Psychiatry; ATTEND Student in an Organized Health Care Education/Training Program
DX: F32.A Depression, unspecified (principal); F15.90 Other stimulant use, unspecified, uncomplicated; Z88.0 Allergy status to penicillin; Z88.8 Allergy status to other drugs, medicaments and biological substances; G47.00 Insomnia, unspecified; F17.200 Nicotine dependence, unspecified, uncomplicated

== ENCOUNTER → 2023-01-22 | Outpatient (CLI) | payer OTHER ==
[~2023-01-22] MED LIST changes: +BENA25CA4 PO; +IBUP-1720 PO; +NICO21PAT TD; +OLAN1TAB16 PO
== END ==
LOC: M CLY 14:53
PROVIDERS: ATTEND Family Medicine
DX: M25.512 Pain in left shoulder (principal)

== ENCOUNTER → 2023-01-25 | Outpatient (CLI) | payer OTHER | LOC: M OUTALCOH 09:47 | PROVIDERS: ATTEND Psychiatry & Neurology Psychiatry | DX: F10.10 Alcohol abuse, uncomplicated (principal) ==

== ENCOUNTER 2023-02-25 09:00 | Outpatient (RCR) | payer OTHER | END 2023-02-28 | LOC: M OUTALCOH 09:00 | PROVIDERS: ATTEND Psychiatry & Neurology Psychiatry | DX: F15.20 Other stimulant dependence, uncomplicated (principal); Z72.0 Tobacco use ==

== ENCOUNTER 2023-03-02 17:14 | Emergency (ER) | payer MEDICAID, OTHER ==
[~2023-03-02] VITALS: Ht 188 cm; Wt 127.3 kg
[2023-03-02] MEDS ORDERED: GI COCKTAIL 50ML BTL(HYOSCYAMINE/MAALOX/LIDOCAINE VISCOUS)(1:3:1) PO ONE (17:40)
[2023-03-02 17:43] LABS: BASO # 0.1 10^3/uL (0.0-0.2); BASO % 0.7 % (0.0-1.0); EOS # 0.1 10^3/uL (0.0-0.5); EOS % 1.1 % (0.0-3.0); HEMATOCRIT 48.4 % (42.0-52.0); HEMOGLOBIN 16.1 g/dl (13.5-17.5); LYMPH # 2.5 10^3/uL (1.5-5.0); LYMPH % 33.3 % (24.0-44.0); MEAN CORPUSCULAR HEMOGLOBIN 29.5 pg (27.0-33.0); MEAN CORPUSCULAR HGB CONC 33.3 g/dl (32.0-36.5); MEAN CORPUSCULAR VOLUME 88.8 fl (80.0-96.0); MONO # 1.1 10^3/uL (0.0-0.8); MONO % 14.3 % (2.0-8.0); NEUTROPHILS # 3.7 10^3/uL (1.5-8.5); NEUTROPHILS % 50.3 % (36.0-66.0); PLATELET COUNT, AUTOMATED 328 10^3/uL (150-450); RED BLOOD COUNT 5.45 10^6/uL (4.30-6.10); WHITE BLOOD COUNT 7.4 10^3/uL (4.0-10.0)
[2023-03-02] MEDS ORDERED: ISOVUE-370 76% 100ML VIAL As Ordered ONE (17:43)
[2023-03-02 18:09] LABS: CK-MB VALUE MASS < 1.0 NG/ML (<3.6); LIPASE 31 U/L (12-53)
[2023-03-02 18:11] LABS: ALBUMIN 4.2 G/DL (3.2-5.2); ALKALINE PHOSPHATASE 103 U/L (46-116); ALT/SGPT 57 U/L (7.0-40); AST/SGOT 47 U/L (<34); BILIRUBIN,DIRECT 0.1 MG/DL (<0.4); BILIRUBIN,TOTAL 0.4 MG/DL (0.3-1.2); BLOOD UREA NITROGEN 12 MG/DL (9-23); CALCIUM LEVEL 9.2 MG/DL (8.5-10.1); CARBON DIOXIDE LEVEL 28 MMOL/L (20-31); CHLORIDE LEVEL 103 MMOL/L (98-107); CREATININE FOR GFR 0.91 MG/DL (0.70-1.30); GLOMERULAR FILTRATION RATE > 60.0 (>60); GLUCOSE, FASTING 80 MG/DL (60-100); POTASSIUM SERUM 4.5 MMOL/L (3.5-5.1); SODIUM LEVEL 139 MMOL/L (136-145); TOTAL PROTEIN 7.5 G/DL (5.7-8.2)
[2023-03-02 18:12] LABS: THYROID STIMULATING HORMONE 1.113 uIU/ML (0.55-4.78)
[2023-03-02 18:13] LABS: FREE T4 1.02 NG/DL (0.89-1.76)
[2023-03-02 18:14] LABS: CPK CREATINE PHOSPHOKINASE 271 U/L (46-171); MB/CK RELATIVE INDEX 0.36 (< OR =4)
[2023-03-02] MEDS ORDERED: KETOROLAC 30 MG/ML 1ML VIAL IV ONE (18:55)
[2023-03-02 19:11] LABS: CK-MB VALUE MASS < 1.0 NG/ML (<3.6)
[2023-03-02 19:13] LABS: CPK CREATINE PHOSPHOKINASE 206 U/L (46-171); MB/CK RELATIVE INDEX 0.48 (< OR =4)
[2023-03-02 20:24] LABS: LIPASE 30 U/L (12-53)
[2023-03-02 20:25] LABS: CK-MB VALUE MASS < 1.0 NG/ML (<3.6)
[2023-03-02 20:26] LABS: CPK CREATINE PHOSPHOKINASE 230 U/L (46-171); MB/CK RELATIVE INDEX 0.43 (< OR =4)
[2023-03-02 20:28] LABS: ALBUMIN 3.8 G/DL (3.2-5.2); ALKALINE PHOSPHATASE 125 U/L (46-116); ALT/SGPT 130 U/L (7.0-40); AST/SGOT 144 U/L (<34); BILIRUBIN,DIRECT 0.4 MG/DL (<0.4); BILIRUBIN,TOTAL 0.8 MG/DL (0.3-1.2); TOTAL PROTEIN 6.7 G/DL (5.7-8.2)
[2023-03-02] MEDS ORDERED: SUCRALFATE 1 GM TAB PO ONE (21:05)
[2023-03-02] MEDS ORDERED: PANTOPRAZOLE 40MG VIAL IV ONE (21:05)
[2023-03-02 22:48] LABS: AMPHETAMINES LEVEL URINE NEGATIVE (NEGATIVE); BARBITURATES URINE NEGATIVE (NEGATIVE); BENZODIAZEPINES URINE NEGATIVE (NEGATIVE); CANNABINOIDS URINE NEGATIVE (NEGATIVE); COCAINE METABOLITE URINE NEGATIVE (NEGATIVE); METHADONE URINE NEGATIVE (NEGATIVE); OPIATES URINE NEGATIVE (NEGATIVE); PHENCYCLIDINE URINE NEGATIVE (NEGATIVE)
[2023-03-02 23:30] VITALS: BP 143/66
[2023-03-02] MEDS ORDERED: CARA1TAB6 PO (23:35)
[2023-03-02] MEDS ORDERED: PANT40TA29 PO (23:35)
[2023-03-03] MEDS ORDERED: ONDANSETRON 4MG ORAL DISINTEGRATING TAB PO ONE
== END 2023-03-03 00:06 | disposition home or self-care (01) ==
LOC: M ED 17:14
DX: K81.9 Cholecystitis, unspecified (principal); K25.3 Acute gastric ulcer without hemorrhage or perforation; Z87.891 Personal history of nicotine dependence; Z88.0 Allergy status to penicillin; Z88.1 Allergy status to other antibiotic agents; Z79.1 Long term (current) use of non-steroidal anti-inflammatories (NSAID); Z79.891 Long term (current) use of opiate analgesic; Z79.899 Other long term (current) drug therapy
CPT/HCPCS: 71045; 71275; 74174; 74181; 80047; 80048; 80076; 80307; 82550; 82553; 83690; 83880; 84439; 84443; 85025; 93005; 93041; 94760; 96374; 96375; 99285; C9113; J1885; Q9967

== ENCOUNTER 2023-03-04 09:45 | Emergency (ER) | payer MEDICAID, OTHER ==
[~2023-03-04] VITALS: Ht 188 cm; Wt 131.5 kg
[~2023-03-04 09:45] MED LIST changes: +CARA1TAB6 PO; +PANT40TA29 PO
[2023-03-04] MEDS ORDERED: NS 1,000 ML IV ONE (10:05)
[2023-03-04 10:59] LABS: BASO % 0.7 % (0.0-1.0); EOS # 0.1 10^3/uL (0.0-0.5); EOS % 1.3 % (0.0-3.0); HEMATOCRIT 45.5 % (42.0-52.0); HEMOGLOBIN 15.4 g/dl (13.5-17.5); LYMPH % 21.8 % (24.0-44.0); MEAN CORPUSCULAR HGB CONC 33.8 g/dl (32.0-36.5); MEAN CORPUSCULAR VOLUME 88.5 fl (80.0-96.0); MONO # 0.6 10^3/uL (0.0-0.8); MONO % 13.1 % (2.0-8.0); NEUTROPHILS # 2.8 10^3/uL (1.5-8.5); NEUTROPHILS % 62.9 % (36.0-66.0); PLATELET COUNT, AUTOMATED 275 10^3/uL (150-450); RED BLOOD COUNT 5.14 10^6/uL (4.30-6.10); WHITE BLOOD COUNT 4.5 10^3/uL (4.0-10.0)
[2023-03-04 11:14] LABS: APPEARANCE, URINE CLEAR (CLEAR); BACTERIA, URINE AUTO NEGATIVE (NEGATIVE); BILIRUBIN, URINE AUTO 2+ (NEGATIVE); BLOOD, URINE BLOOD NEGATIVE (NEGATIVE); COLOR, URINE AMBER (YELLOW); GLUCOSE, URINE (UA) AUTO NEGATIVE (NEGATIVE); KETONE, URINE AUTO NEGATIVE (NEGATIVE); LEUKOCYTE ESTERASE, URINE AUTO NEGATIVE (NEGATIVE); NITRITE, URINE AUTO NEGATIVE (NEGATIVE); PROTEIN, URINE AUTO NEGATIVE (NEGATIVE); RBC, URINE AUTO 1 /HPF (0-3); SPECIFIC GRAVITY URINE AUTO 1.016 (1.002-1.035); SQUAMOUS EPITHELIAL CELL UR AU 0 /HPF (0-6); WBC, URINE AUTO 1 /HPF (0-3)
[2023-03-04 11:25] LABS: LIPASE 27 U/L (12-53)
[2023-03-04 11:31] LABS: ALKALINE PHOSPHATASE 272 U/L (46-116); ALT/SGPT 565 U/L (7.0-40); AST/SGOT 294 U/L (<34); BILIRUBIN,DIRECT 4.1 MG/DL (<0.4); BILIRUBIN,TOTAL 5.3 MG/DL (0.3-1.2); BLOOD UREA NITROGEN 9 MG/DL (9-23); CALCIUM LEVEL 9.2 MG/DL (8.5-10.1); CARBON DIOXIDE LEVEL 28 MMOL/L (20-31); CHLORIDE LEVEL 103 MMOL/L (98-107); CREATININE FOR GFR 0.92 MG/DL (0.70-1.30); GLOMERULAR FILTRATION RATE > 60.0 (>60); GLUCOSE, FASTING 96 MG/DL (60-100); POTASSIUM SERUM 4.1 MMOL/L (3.5-5.1); SODIUM LEVEL 137 MMOL/L (136-145); TOTAL PROTEIN 7.3 G/DL (5.7-8.2)
[2023-03-04 14:30] LABS: RSV AMPLIFICATION NEGATIVE (NEGATIVE)
[2023-03-04] MEDS ORDERED: KETOROLAC 30 MG/ML 1ML VIAL IV ONE (14:45)
[2023-03-04] MEDS ORDERED: ONDANSETRON 4MG 2ML VIAL IV ONE ×2 (14:45→19:45)
[2023-03-04] MEDS ORDERED: MORPHINE 4 MG/ML 1ML VIAL IV ONE ×2 (17:15→19:45)
[2023-03-04] MEDS ORDERED: PROMETHAZINE 25 MG TAB PO ONE (17:15)
[2023-03-04 20:01] VITALS: BP 149/78
== END 2023-03-04 20:07 | disposition short-term general hospital (02) ==
LOC: M ED 09:45
DX: K80.00 Calculus of gallbladder with acute cholecystitis without obstruction (principal); F17.200 Nicotine dependence, unspecified, uncomplicated; Z87.19 Personal history of other diseases of the digestive system; Z88.0 Allergy status to penicillin; Z88.1 Allergy status to other antibiotic agents; Z79.891 Long term (current) use of opiate analgesic; Z79.899 Other long term (current) drug therapy
CPT/HCPCS: 76705; 80048; 80076; 81001; 83690; 85025; 87631; 96374; 99284; J1885; J2405

== ENCOUNTER 2023-03-30 16:00 | Outpatient (RCR) | payer OTHER | END 2023-03-31 | LOC: M OUTALCOH 16:00 | PROVIDERS: ATTEND Psychiatry & Neurology Psychiatry | DX: F15.20 Other stimulant dependence, uncomplicated (principal); Z72.0 Tobacco use ==

== ENCOUNTER → 2023-04-30 | Outpatient (RCR) | payer MEDICAID, OTHER | LOC: M OUTALCOH 04-01 10:39 | PROVIDERS: ATTEND Psychiatry & Neurology Psychiatry | DX: F15.20 Other stimulant dependence, uncomplicated (principal); Z72.0 Tobacco use ==

== ENCOUNTER 2023-05-28 12:36 | Outpatient (RCR) | payer MEDICAID | END 2023-05-31 | LOC: M OUTALCOH 12:36 | PROVIDERS: ATTEND Psychiatry & Neurology Psychiatry | DX: F15.20 Other stimulant dependence, uncomplicated (principal); Z72.0 Tobacco use ==

== ENCOUNTER 2023-06-08 15:56 | Outpatient (RCR) | payer MEDICAID | END 2023-07-01 | LOC: M OUTALCOH 15:56 | PROVIDERS: ATTEND Psychiatry & Neurology Psychiatry | DX: F15.20 Other stimulant dependence, uncomplicated (principal); Z72.0 Tobacco use ==

== ENCOUNTER → 2024-02-21 | Outpatient (CLI) | payer BC, MEDICAID, OTHER ==
[~2024-02-21] MED LIST changes: +PROHANCE 279.3MG/ML 15ML VIAL As Ordered ONE; +PROHANCE 279.3MG/ML 5ML VIAL As Ordered ONE
== END ==
LOC: M RAD 12:34
PROVIDERS: ATTEND Physician Assistant
DX: H93.12 Tinnitus, left ear (principal)

== ENCOUNTER → 2025-02-22 | Outpatient (REF) | payer OTHER ==
[~2025-02-22] MED LIST changes: -PROHANCE 279.3MG/ML 15ML VIAL As Ordered ONE; -PROHANCE 279.3MG/ML 5ML VIAL As Ordered ONE
[2025-02-22 17:51] LABS: ALBUMIN 4.1 G/DL (3.2-5.2); ALKALINE PHOSPHATASE 89 U/L (40-129); ALT/SGPT 55 U/L (7.0-40); AST/SGOT 32 U/L (<34); BILIRUBIN,TOTAL 0.6 MG/DL (0.3-1.2); BLOOD UREA NITROGEN 13 MG/DL (9-23); CALCIUM LEVEL 9.1 MG/DL (8.5-10.1); CARBON DIOXIDE LEVEL 25 MMOL/L (20-31); CHLORIDE LEVEL 107 MMOL/L (98-107); CHOLESTEROL LEVEL 277 MG/DL (<200); CHOLESTEROL RISK RATIO 7.75 (<5); CREATININE FOR GFR 0.88 MG/DL (0.70-1.30); GLOMERULAR FILTRATION RATE > 90.0 (>60); GLUCOSE, FASTING 97 MG/DL (60-100); HDL CHOLESTEROL 35.7 MG/DL (>40); LDL CHOLESTEROL 191.3 MG/DL (<100); NON-HDL-C 241.3 MG/DL; POTASSIUM SERUM 4.3 MMOL/L (3.5-5.1); SODIUM LEVEL 140 MMOL/L (136-145); TOTAL PROTEIN 6.9 G/DL (5.7-8.2); TRIGLYCERIDES LEVEL 250 MG/DL (<150)
[2025-02-22 18:03] LABS: HEMOGLOBIN A1c 5.2 % (4.0-6.0)
== END ==
LOC: M SFHCCLAY 09:40
PROVIDERS: ATTEND Physician Assistant
DX: Z00.00 Encounter for general adult medical examination without abnormal findings (principal); F19.10 Other psychoactive substance abuse, uncomplicated

== ENCOUNTER → 2025-09-06 | Outpatient (CLI) | payer BC ==
[~2025-09-06] MED LIST changes: -IBUP-1022 PO; +IBUP600T42 PO
== END ==
LOC: M SLEEP 20:00
PROVIDERS: ATTEND Physician Assistant
DX: G47.33 Obstructive sleep apnea (adult) (pediatric) (principal)